=== PATIENT | female | born 1945 | race Caucasian/White ===

== ENCOUNTER 2022-09-10 18:31 | Inpatient (IN) | payer MEDICARE, OTHER ==
[~2022-09-10 18:31] MED LIST: Iopamidol 370 76% 100 ML VIAL ONE
[2022-09-10 18:54] VITALS: BMI 43.3
[2022-09-10] MEDS ORDERED: Senokot S 8.6-50 MG TAB PO PRN (19:52)
[2022-09-10] MEDS ORDERED: HYDROcodone/Acetaminophen 5/325 mg Tablet PO PRN (19:52)
[2022-09-10] MEDS ORDERED: Acetaminophen 325 MG TAB PO PRN (19:52)
[2022-09-10] MEDS: Atorvastatin Calcium 20 MG TAB PO SCH (20:40)
[2022-09-10] MEDS: Sodium Chloride 0.9% 1,000 ML IV SCH (20:40)
[2022-09-10 21:07] LABS: Magnesium 1.7 mg/dL (1.6-2.6)
[2022-09-10 21:13] LABS: Troponin I 0.013 ng/mL (< 0.028)
[2022-09-10] MEDS ORDERED: Sodium Chloride 0.9% 500 ML IV SCH (23:45)
[2022-09-11 05:22] LABS: #Basophils 0.1 10x3/uL (0.0-0.2); #Eosinphils 0.5 10x3/uL (0.0-0.5); #Monocytes 0.6 10x3/uL (0.0-1.1); #Neutrophils 4.1 10x3/uL (1.5-8.4); %Basophils 0.8 % (0.0-2.0); %Eosinophils 7.2 % (0.0-6.0); %Lymphocytes 19.2 % (18.0-47.0); %Monocytes 9.3 % (0.0-10.0); Hemoglobin 10.2 g/dL (12.0-15.5); Mean Corpuscular HGB CONC 33.3 g/dL (32.0-36.0); Mean Corpuscular Hemoglobin 31.2 pg (27.0-33.0); Mean Corpuscular Volume 93.6 fl (81.6-98.3); Mean Platelet Volume 10.7 fl (7.4-10.4); Platelet Count 136 10x3/uL (150-450); RBC Distribution Width 14.2 % (11.5-14.5); Red Blood Cell (RBC) Count 3.27 10x6/uL (3.90-5.03); White Blood Cell (WBC) Count 6.4 10x3/uL (3.5-10.5)
[2022-09-11] MEDS: Levothyroxine Sodium 112 MCG TAB PO SCH (05:24)
[2022-09-11 05:41] LABS: Anion Gap 12 mmol/L (10-20); BUN (Urea Nitrogen) 15 mg/dL (9.8-20.1); Calc. Creatinine Clearance 107 mL/min (70-130); Calcium 8.8 mg/dL (7.8-10.44); Carbon Dioxide 25 mmol/L (23-31); Chloride 105 mmol/L (98-107); Estimated GFR 66; Glucose 166 mg/dL (83-110); Potassium 3.5 mmol/L (3.5-5.1); Sodium 138 mmol/L (136-145)
[2022-09-11] MEDS: Polyethylene Glycol 3350 17 GM Packet PO SCH (08:44)
[2022-09-11] MEDS: Sertraline 100 MG TAB PO SCH (08:44)
[2022-09-11] MEDS: Aspirin 81 mg Enteric Coated Tablet PO SCH (08:44)
[2022-09-11] MEDS: Magnesium Oxide 400 MG TAB PO SCH ×2 (08:44→20:40)
[2022-09-11] MEDS: Enoxaparin Sodium 40 MG/0.4 ML SYRINGE SC SCH (08:44)
[2022-09-11] MEDS: Cholecalciferol 1,000 UNITS (25 MCG) TAB PO SCH (08:44)
[2022-09-11] MEDS ORDERED: Potassium Chloride 20 MEQ TAB PO SCH (09:00)
[2022-09-11] MEDS ORDERED: Dextrose 5% in Water 1,000 ML IV PRN (15:49)
[2022-09-11] MEDS ORDERED: Dextrose 50% Abboject 50 ML SYRINGE SLOW IVP PRN (15:49)
[2022-09-11] MEDS ORDERED: Insulin Regular 300 UNITS/3 ML VIAL SC PRN (15:49)
[2022-09-11] MEDS: Insulin Regular 300 UNITS/3 ML VIAL SC PRN (16:12)
[2022-09-11] MEDS: Sodium Chloride 0.9% 1,000 ML IV SCH (16:12)
[2022-09-11] MEDS: Atorvastatin Calcium 20 MG TAB PO SCH (20:41)
[2022-09-11] MEDS: HumuLIN 70/30 (300 UNITS/3 ML VIAL) SC SCH (20:43)
[2022-09-12] MEDS: Levothyroxine Sodium 112 MCG TAB PO SCH (05:58)
[2022-09-12] MEDS: Cholecalciferol 1,000 UNITS (25 MCG) TAB PO SCH (09:38)
[2022-09-12] MEDS: Aspirin 81 mg Enteric Coated Tablet PO SCH (09:38)
[2022-09-12] MEDS: Sertraline 100 MG TAB PO SCH (09:38)
[2022-09-12] MEDS: Polyethylene Glycol 3350 17 GM Packet PO SCH (09:38)
[2022-09-12] MEDS: Enoxaparin Sodium 40 MG/0.4 ML SYRINGE SC SCH (09:39)
[2022-09-12] MEDS: HumuLIN 70/30 (300 UNITS/3 ML VIAL) SC SCH ×2 (09:40→21:43)
[2022-09-12] MEDS: Insulin Regular 300 UNITS/3 ML VIAL SC PRN (12:44)
[2022-09-12] MEDS: Atorvastatin Calcium 20 MG TAB PO SCH (21:38)
[2022-09-13] MEDS: Levothyroxine Sodium 112 MCG TAB PO SCH (06:24)
[2022-09-13] MEDS: Polyethylene Glycol 3350 17 GM Packet PO SCH (09:14)
[2022-09-13] MEDS: Aspirin 81 mg Enteric Coated Tablet PO SCH (10:00)
[2022-09-13] MEDS: Enoxaparin Sodium 40 MG/0.4 ML SYRINGE SC SCH (10:00)
[2022-09-13] MEDS: Sertraline 100 MG TAB PO SCH (10:00)
[2022-09-13] MEDS: Cholecalciferol 1,000 UNITS (25 MCG) TAB PO SCH (10:00)
[2022-09-13] MEDS: HumuLIN 70/30 (300 UNITS/3 ML VIAL) SC SCH (10:02)
[2022-09-13 11:31] VITALS: TEMP 98.9
[2022-09-13] MEDS: Insulin Regular 300 UNITS/3 ML VIAL SC PRN (11:56)
[2022-09-13 13:20] VITALS: BP 136/60
== END 2022-09-13 13:30 | DRG 312 ==
LOC: CSHTELE 18:31
PROVIDERS: ADMIT Family Medicine; ATTEND Family Medicine
DX: I95.1 Orthostatic hypotension (principal); I50.30 Unspecified diastolic (congestive) heart failure; N17.9 Acute kidney failure, unspecified; I13.0 Hypertensive heart and chronic kidney disease with heart failure and stage 1 through stage 4 chronic kidney disease, or unspecified chronic kidney disease; Z68.41 Body mass index [BMI] 40.0-44.9, adult; N18.31 Chronic kidney disease, stage 3a; E03.9 Hypothyroidism, unspecified; E11.22 Type 2 diabetes mellitus with diabetic chronic kidney disease; E66.9 Obesity, unspecified; X58.XXXA Exposure to other specified factors, initial encounter; I48.91 Unspecified atrial fibrillation; S32.010D Wedge compression fracture of first lumbar vertebra, subsequent encounter for fracture with routine healing; Z79.82 Long term (current) use of aspirin; Z79.899 Other long term (current) drug therapy; Z79.4 Long term (current) use of insulin; Z98.890 Other specified postprocedural states; Z90.710 Acquired absence of both cervix and uterus
CPT/HCPCS: 36415; 36416; 71275; 80048; 83735; 84443; 84484; 85025; 85379; 93005; 93010; 93306; 93970; J1650; J1815; J7030; J7050; Q9967

== ENCOUNTER 2023-10-20 21:04 | Emergency (ER) | payer MEDICARE, OTHER ==
[2023-10-20 22:21] LABS: SARS-CoV-2 NAA Rapid Test Not Detected (NotDetected)
== END 2023-10-21 02:30 | disposition home or self-care (01) ==
LOC: CSHERS 21:04
DX: J20.9 Acute bronchitis, unspecified (principal); E11.9 Type 2 diabetes mellitus without complications; E03.9 Hypothyroidism, unspecified; I10 Essential (primary) hypertension; E78.00 Pure hypercholesterolemia, unspecified; Z79.899 Other long term (current) drug therapy; Z79.82 Long term (current) use of aspirin
CPT/HCPCS: 0240U; 71045; 93005

== ENCOUNTER 2023-12-04 13:46 | Inpatient (IN) | payer MEDICARE, OTHER ==
[2023-12-04 15:21] LABS: #Eosinphils 0.4 10x3/uL (0.0-0.5); #Monocytes 0.4 10x3/uL (0.0-1.1); #Neutrophils 3.8 10x3/uL (1.5-8.4); %Basophils 0.5 % (0.0-2.0); %Eosinophils 6.3 % (0.0-6.0); %Lymphocytes 20.5 % (18.0-47.0); %Monocytes 7.5 % (0.0-10.0); %Neutrophils 64.7 % (40.0-75.0); Hematocrit 31.8 % (34.9-44.5); Hemoglobin 10.6 g/dL (12.0-15.5); Mean Corpuscular HGB CONC 33.3 g/dL (32.0-36.0); Mean Corpuscular Hemoglobin 31.1 pg (27.0-33.0); Mean Corpuscular Volume 93.3 fl (81.6-98.3); Mean Platelet Volume 10.8 fl (7.4-10.4); Platelet Count 152 10x3/uL (150-450); RBC Distribution Width 15.2 % (11.5-14.5); Red Blood Cell (RBC) Count 3.41 10x6/uL (3.90-5.03); White Blood Cell (WBC) Count 5.9 10x3/uL (3.5-10.5)
[2023-12-04 15:30] LABS: ALT (SGPT) 26 U/L (8-55); AST (SGOT) 31 U/L (5-34); Albumin 3.4 g/dL (3.4-4.8); Alkaline Phosphatase 126 U/L (40-110); Anion Gap 13 mmol/L (10-20); BUN (Urea Nitrogen) 16 mg/dL (9.8-20.1); Bilirubin, Total 0.6 mg/dL (0.2-1.2); Calc. Creatinine Clearance 0 mL/min (70-130); Calcium 9.4 mg/dL (7.8-10.44); Carbon Dioxide 28 mmol/L (23-31); Chloride 100 mmol/L (98-107); Estimated GFR 54; Globulin 4.8 g/dL (2.4-3.5); Glucose 157 mg/dL (83-110); Potassium 3.6 mmol/L (3.5-5.1); Protein, Total 8.2 g/dL (5.8-8.1); Sodium 137 mmol/L (136-145)
[2023-12-04 15:35] LABS: Troponin I Less than 0.010 ng/mL (< 0.028)
[2023-12-04] MEDS ORDERED: Aspirin Chewable 81 MG TAB ONE (15:41)
[2023-12-04] MEDS ORDERED: Nitroglycerin 2% Ointment 1 INCH/1 GM Packet ONE (15:41)
[2023-12-04 16:13] LABS: Bilirubin Neg (Negative); Blood, Urine 10 (Negative); Clarity Clear (Clear); Glucose, Urine (Dipstick) Normal (Negative); Ketone, Urine Negative (Negative); Leukocyte 25 (Negative); Nitrite Negative (Negative); Protein, Urine (Dipstick) 15 mg/dl (Neg-Trace)
[2023-12-04 16:23] LABS: Bacteria/HPF Rare-Few HPF (None Seen); CAUTI Indications for Culture Pelvic or flank pain; RBC/HPF 0-3 HPF (0-3); Squamous Epithelial 0-3 HPF (0-3); WBC/HPF 0-3 HPF (0-3)
[2023-12-04 16:24] LABS: Urine Culture Reflex No No
[2023-12-04 16:44] LABS: SARS-CoV-2 NAA Rapid Test Not Detected (NotDetected)
[2023-12-04] MEDS ORDERED: Acetaminophen 650 MG Suppository PR PRN (18:10)
[2023-12-04] MEDS ORDERED: Ondansetron PF 4 MG/2 ML Vial IVP PRN (18:10)
[2023-12-04] MEDS ORDERED: Ondansetron ODT 4 MG TAB PO PRN (18:10)
[2023-12-04] MEDS ORDERED: Dextrose 5% in Water 1,000 ML IV PRN (18:15)
[2023-12-04] MEDS ORDERED: Dextrose 50% Abboject 50 ML SYRINGE SLOW IVP PRN (18:15)
[2023-12-04] MEDS ORDERED: Insulin Regular 300 UNITS/3 ML VIAL SC PRN (18:15)
[2023-12-04] MEDS ORDERED: Glucagon 1 MG/ML KIT IM PRN (18:15)
[2023-12-04 18:17] LABS: Troponin I 0.014 ng/mL (< 0.028)
[2023-12-04 21:50] LABS: Troponin I Less than 0.010 ng/mL (< 0.028)
[2023-12-04] MEDS: Acetaminophen 325 MG TAB PO PRN (22:32)
[2023-12-04 23:30] VITALS: BMI 37.2
[2023-12-05] MEDS: Levothyroxine Sodium 112 MCG TAB PO SCH (06:00)
[2023-12-05 06:56] LABS: #Eosinphils 0.3 10x3/uL (0.0-0.5); #Monocytes 0.6 10x3/uL (0.0-1.1); %Basophils 0.5 % (0.0-2.0); %Eosinophils 5.5 % (0.0-6.0); %Monocytes 10.5 % (0.0-10.0); Hematocrit 30.5 % (34.9-44.5); Hemoglobin 9.8 g/dL (12.0-15.5); Mean Corpuscular HGB CONC 32.1 g/dL (32.0-36.0); Mean Corpuscular Volume 93.3 fl (81.6-98.3); Mean Platelet Volume 10.6 fl (7.4-10.4); Platelet Count 149 10x3/uL (150-450); RBC Distribution Width 15.3 % (11.5-14.5); Red Blood Cell (RBC) Count 3.27 10x6/uL (3.90-5.03); White Blood Cell (WBC) Count 5.5 10x3/uL (3.5-10.5)
[2023-12-05 07:01] LABS: Anion Gap 12 mmol/L (10-20); BUN (Urea Nitrogen) 13 mg/dL (9.8-20.1); Calc. Creatinine Clearance 93 mL/min (70-130); Calcium 9.2 mg/dL (7.8-10.44); Carbon Dioxide 28 mmol/L (23-31); Cardiac Risk 2.1 (Less than 4.5); Chloride 104 mmol/L (98-107); Cholesterol 93 mg/dl (< 200 Desired); Estimated GFR 68; Glucose 142 mg/dL (83-110); HDL Cholesterol 44 mg/dL (>60 Neg Risk); LDL Cholesterol, Calculated 34 mg/dL; Potassium 3.3 mmol/L (3.5-5.1); Sodium 141 mmol/L (136-145); Triglycerides 75 mg/dL (Less than 150)
[2023-12-05] MEDS: Aspirin Chewable 81 MG TAB PO SCH (09:15)
[2023-12-05] MEDS: Sertraline 100 MG TAB PO SCH (09:15)
[2023-12-05] MEDS: Lisinopril 10 MG TAB PO SCH (09:15)
[2023-12-05] MEDS: HumuLIN 70/30 100 Unit/ml 10 ml Vial SC SCH (09:26)
[2023-12-05 13:47] LABS: Magnesium 1.8 mg/dL (1.6-2.6)
[2023-12-05] MEDS: Potassium Chloride 20 MEQ TAB PO SCH (13:50)
[2023-12-05] MEDS: Furosemide 40 MG (4 mL) VIAL SLOW IVP SCH (13:50)
[2023-12-05] MEDS: Carvedilol 3.125 MG TAB PO SCH (17:31)
[2023-12-05] MEDS: Simvastatin 40 MG TAB PO SCH (19:54)
[2023-12-05] MEDS: Rosuvastatin 20 MG TAB PO SCH (21:38)
[2023-12-06 05:04] LABS: #Eosinphils 0.4 10x3/uL (0.0-0.5); #Monocytes 0.9 10x3/uL (0.0-1.1); #Neutrophils 3.1 10x3/uL (1.5-8.4); %Basophils 0.5 % (0.0-2.0); %Eosinophils 5.7 % (0.0-6.0); %Lymphocytes 32.7 % (18.0-47.0); %Monocytes 13.2 % (0.0-10.0); %Neutrophils 47.6 % (40.0-75.0); Hematocrit 31.4 % (34.9-44.5); Hemoglobin 10.2 g/dL (12.0-15.5); Mean Corpuscular HGB CONC 32.5 g/dL (32.0-36.0); Mean Corpuscular Hemoglobin 30.4 pg (27.0-33.0); Mean Corpuscular Volume 93.5 fl (81.6-98.3); Mean Platelet Volume 10.9 fl (7.4-10.4); Platelet Count 146 10x3/uL (150-450); RBC Distribution Width 15.4 % (11.5-14.5); Red Blood Cell (RBC) Count 3.36 10x6/uL (3.90-5.03); White Blood Cell (WBC) Count 6.5 10x3/uL (3.5-10.5)
[2023-12-06 05:08] LABS: Anion Gap 12 mmol/L (10-20); BUN (Urea Nitrogen) 16 mg/dL (9.8-20.1); Calc. Creatinine Clearance 87 mL/min (70-130); Calcium 9.6 mg/dL (7.8-10.44); Carbon Dioxide 31 mmol/L (23-31); Chloride 99 mmol/L (98-107); Estimated GFR 63; Glucose 103 mg/dL (83-110); Potassium 3.9 mmol/L (3.5-5.1); Sodium 138 mmol/L (136-145)
[2023-12-06] MEDS: Furosemide 40 MG (4 mL) VIAL SLOW IVP SCH (13:26)
[2023-12-07 03:54] LABS: #Eosinphils 0.5 10x3/uL (0.0-0.5); #Monocytes 0.7 10x3/uL (0.0-1.1); #Neutrophils 3.3 10x3/uL (1.5-8.4); %Basophils 0.6 % (0.0-2.0); %Eosinophils 7.6 % (0.0-6.0); %Lymphocytes 29.4 % (18.0-47.0); %Monocytes 10.8 % (0.0-10.0); %Neutrophils 51.1 % (40.0-75.0); Hematocrit 32.6 % (34.9-44.5); Hemoglobin 10.6 g/dL (12.0-15.5); Mean Corpuscular HGB CONC 32.5 g/dL (32.0-36.0); Mean Corpuscular Hemoglobin 30.5 pg (27.0-33.0); Mean Corpuscular Volume 93.9 fl (81.6-98.3); Platelet Count 148 10x3/uL (150-450); RBC Distribution Width 15.3 % (11.5-14.5); Red Blood Cell (RBC) Count 3.47 10x6/uL (3.90-5.03); White Blood Cell (WBC) Count 6.5 10x3/uL (3.5-10.5)
[2023-12-07 04:22] LABS: Anion Gap 12 mmol/L (10-20); BUN (Urea Nitrogen) 19 mg/dL (9.8-20.1); Calc. Creatinine Clearance 93 mL/min (70-130); Calcium 9.5 mg/dL (7.8-10.44); Carbon Dioxide 27 mmol/L (23-31); Chloride 102 mmol/L (98-107); Estimated GFR 68; Glucose 94 mg/dL (83-110); Potassium 3.7 mmol/L (3.5-5.1); Sodium 137 mmol/L (136-145)
[2023-12-07] MEDS: Senokot S 8.6-50 MG TAB PO PRN (06:28)
[2023-12-07] MEDS: Furosemide 40 MG (4 mL) VIAL SLOW IVP SCH (10:33)
[2023-12-07] MEDS: Potassium Chloride 20 MEQ TAB PO SCH (10:33)
[2023-12-08 05:34] LABS: #Eosinphils 0.4 10x3/uL (0.0-0.5); #Monocytes 0.8 10x3/uL (0.0-1.1); #Neutrophils 3.7 10x3/uL (1.5-8.4); %Basophils 0.4 % (0.0-2.0); %Eosinophils 6.1 % (0.0-6.0); %Neutrophils 53.2 % (40.0-75.0); Hematocrit 33.1 % (34.9-44.5); Hemoglobin 10.5 g/dL (12.0-15.5); Mean Corpuscular HGB CONC 31.7 g/dL (32.0-36.0); Mean Corpuscular Hemoglobin 29.6 pg (27.0-33.0); Mean Corpuscular Volume 93.2 fl (81.6-98.3); Mean Platelet Volume 11.1 fl (7.4-10.4); Platelet Count 154 10x3/uL (150-450); RBC Distribution Width 15.3 % (11.5-14.5); Red Blood Cell (RBC) Count 3.55 10x6/uL (3.90-5.03)
[2023-12-08 05:47] LABS: Anion Gap 13 mmol/L (10-20); BUN (Urea Nitrogen) 23 mg/dL (9.8-20.1); Calc. Creatinine Clearance 84 mL/min (70-130); Calcium 9.8 mg/dL (7.8-10.44); Carbon Dioxide 30 mmol/L (23-31); Chloride 98 mmol/L (98-107); Estimated GFR 60; Glucose 111 mg/dL (83-110); Sodium 137 mmol/L (136-145)
[2023-12-09 05:42] LABS: #Eosinphils 0.5 10x3/uL (0.0-0.5); #Monocytes 0.9 10x3/uL (0.0-1.1); #Neutrophils 3.7 10x3/uL (1.5-8.4); %Basophils 0.4 % (0.0-2.0); %Eosinophils 6.8 % (0.0-6.0); %Lymphocytes 29.5 % (18.0-47.0); %Neutrophils 50.7 % (40.0-75.0); Hematocrit 30.3 % (34.9-44.5); Mean Corpuscular Hemoglobin 30.6 pg (27.0-33.0); Mean Corpuscular Volume 92.7 fl (81.6-98.3); Mean Platelet Volume 11.5 fl (7.4-10.4); Platelet Count 153 10x3/uL (150-450); RBC Distribution Width 15.5 % (11.5-14.5); Red Blood Cell (RBC) Count 3.27 10x6/uL (3.90-5.03); White Blood Cell (WBC) Count 7.3 10x3/uL (3.5-10.5)
[2023-12-09 05:59] LABS: Anion Gap 14 mmol/L (10-20); BUN (Urea Nitrogen) 32 mg/dL (9.8-20.1); Calc. Creatinine Clearance 73 mL/min (70-130); Calcium 9.7 mg/dL (7.8-10.44); Carbon Dioxide 29 mmol/L (23-31); Chloride 98 mmol/L (98-107); Estimated GFR 50; Glucose 113 mg/dL (83-110); Potassium 4.2 mmol/L (3.5-5.1); Sodium 137 mmol/L (136-145)
[2023-12-09] MEDS ORDERED: Polyethylene Glycol 3350 17 GM Packet PO PRN (07:24)
[2023-12-09] MEDS: Furosemide 40 MG (4 mL) VIAL SLOW IVP SCH (09:23)
[2023-12-10 04:57] LABS: #Eosinphils 0.4 10x3/uL (0.0-0.5); #Monocytes 0.9 10x3/uL (0.0-1.1); #Neutrophils 2.9 10x3/uL (1.5-8.4); %Basophils 0.5 % (0.0-2.0); %Eosinophils 6.4 % (0.0-6.0); %Lymphocytes 32.8 % (18.0-47.0); %Monocytes 14.4 % (0.0-10.0); %Neutrophils 45.6 % (40.0-75.0); Hematocrit 32.1 % (34.9-44.5); Hemoglobin 10.5 g/dL (12.0-15.5); Mean Corpuscular HGB CONC 32.7 g/dL (32.0-36.0); Mean Corpuscular Hemoglobin 30.3 pg (27.0-33.0); Mean Corpuscular Volume 92.8 fl (81.6-98.3); Platelet Count 144 10x3/uL (150-450); RBC Distribution Width 15.4 % (11.5-14.5); Red Blood Cell (RBC) Count 3.46 10x6/uL (3.90-5.03); White Blood Cell (WBC) Count 6.4 10x3/uL (3.5-10.5)
[2023-12-10 05:05] LABS: Anion Gap 14 mmol/L (10-20); BUN (Urea Nitrogen) 41 mg/dL (9.8-20.1); Calc. Creatinine Clearance 68 mL/min (70-130); Carbon Dioxide 28 mmol/L (23-31); Chloride 98 mmol/L (98-107); Estimated GFR 46; Glucose 118 mg/dL (83-110); Potassium 4.1 mmol/L (3.5-5.1); Sodium 136 mmol/L (136-145)
[2023-12-10 12:00] VITALS: BP 111/50; TEMP 98.6
== END 2023-12-10 14:09 | DRG 189 ==
LOC: CSHERS 13:46 → CSHERHOLD 16:17 → CSHTELE 22:05 → OBSVTOIN 12-06 12:49
PROVIDERS: ADMIT Family Medicine; ATTEND Internal Medicine
DX: J96.01 Acute respiratory failure with hypoxia (principal); R07.89 Other chest pain; E03.9 Hypothyroidism, unspecified; N18.30 Chronic kidney disease, stage 3 unspecified; I12.9 Hypertensive chronic kidney disease with stage 1 through stage 4 chronic kidney disease, or unspecified chronic kidney disease; E78.5 Hyperlipidemia, unspecified; D64.9 Anemia, unspecified; Z11.52 Encounter for screening for COVID-19; R31.9 Hematuria, unspecified; R53.1 Weakness; Z79.899 Other long term (current) drug therapy; Z79.82 Long term (current) use of aspirin; Z79.4 Long term (current) use of insulin; Z79.890 Hormone replacement therapy; Z90.710 Acquired absence of both cervix and uterus; Z90.89 Acquired absence of other organs; Z98.890 Other specified postprocedural states; Z83.3 Family history of diabetes mellitus
CPT/HCPCS: 36415; 36416; 71045; 80048; 80053; 80061; 81001; 83690; 83735; 83880; 84145; 84484; 85025; 85379; 93005; 93306; 96374; G0378; J1815; J1940

== ENCOUNTER 2024-10-21 21:12 | Emergency (ER) | payer MEDICARE, OTHER ==
[2024-10-21 22:15] LABS: #Basophils 0.01 10x3/uL (0.0-0.2); #Eosinophils 0.15 10x3/uL (0.0-0.5); #Monocytes 0.43 10x3/uL (0.0-1.1); #Neutrophils 3.24 10x3/uL (1.5-8.4); %Basophils 0.2 % (0.0-2.0); %Eosinophils 2.6 % (0.0-6.0); %Lymphocytes 31.9 % (18.0-47.0); %Monocytes 7.6 % (0.0-10.0); Hematocrit 34.8 % (34.9-44.5); Hemoglobin 11.1 g/dL (12.0-15.5); Mean Corpuscular HGB CONC 31.9 g/dL (32.0-36.0); Mean Corpuscular Volume 97.2 fL (81.6-98.3); Mean Platelet Volume 10.7 fL (7.4-10.4); Platelet Count 112 10x3/uL (150-450); RBC Distribution Width 15.5 % (11.5-14.5); Red Blood Cell (RBC) Count 3.58 10x6/uL (3.90-5.03); White Blood Cell (WBC) Count 5.8 10x3/uL (3.5-10.5)
[2024-10-21 22:22] LABS: INR-International Normal Ratio 1.1; PTT 23.4 sec (22.0-33.0)
[2024-10-21 22:32] LABS: Troponin I Less than 0.010 ng/mL (< 0.028)
[2024-10-21 22:34] LABS: ALT (SGPT) 28 U/L (8-55); AST (SGOT) 32 U/L (5-34); Alkaline Phosphatase 109 U/L (40-110); Anion Gap 18 mmol/L (10-20); BUN (Urea Nitrogen) 19 mg/dL (9.8-20.1); Bilirubin, Total 0.6 mg/dL (0.2-1.2); Calc. Creatinine Clearance 0 mL/min (70-130); Carbon Dioxide 29 mmol/L (23-31); Chloride 97 mmol/L (98-107); Estimated GFR 43; Globulin 5.8 g/dL (2.4-3.5); Glucose 222 mg/dL (83-110); Potassium 3.8 mmol/L (3.5-5.1); Protein, Total 8.8 g/dL (5.8-8.1); Sodium 140 mmol/L (136-145)
[2024-10-21] MEDS ORDERED: Acetaminophen 325 MG TAB ONE (22:47)
[2024-10-22] MEDS ORDERED: Boostrix 0.5 ML (Tdap) VIAL (>/=7 yrs of age) ONE (00:21)
[2024-10-22] MEDS ORDERED: hydrALAZINE 20 MG/ML VIAL ONE ×2 (01:06→03:48)
[2024-10-22] MEDS ORDERED: Metoprolol Tartrate 5 MG (5 mL) VIAL ONE (01:54)
[2024-10-22 02:55] LABS: Actual Bicarbonate (HCO3v) 35.2 mEq/L (22-28); Analyzer IN Cardio CS ER; Base Excess 8.9 mEq/L (-2 - +2); Calcium, Ionized (venous) 1.14 mmol/L (1.16-1.32); Chloride (VBG) 96 mmol/L (98-106); Critical Notified By: CP.PH; Hematocrit-VBG 35 % (36.0-47.0); Hemoglobin (Hb) 11.9 g/dL (11.7-16.1); Potassium (VBG) 3.72 mmol/L (3.70-5.30); Puncture Site Other Site; Sodium 140 mmol/L (133-146); pH (venous) 7.413 (7.32-7.43)
[2024-10-22] MEDS ORDERED: Morphine 2 MG/ML VIAL ONE (06:20)
== END 2024-10-22 06:31 | disposition short-term general hospital (02) ==
LOC: CSHERS 21:12
DX: S09.90XA Unspecified injury of head, initial encounter (principal); J96.11 Chronic respiratory failure with hypoxia; J96.12 Chronic respiratory failure with hypercapnia; X58.XXXA Exposure to other specified factors, initial encounter
CPT/HCPCS: 70450; 70486; 71045; 71260; 72125; 80053; 82805; 83880; 84484; 85025; 85610; 85730; 93005; 94760; 96374; 96375; 99285; J0360; J2272; Q9967; 36415; 90715